=== PATIENT | female | born 1995 | race African-American/Black ===

== ENCOUNTER 2016-09-18 13:23 | Emergency (ER) | payer MEDICAID ==
[~2016-09-18] VITALS: Ht 142.2 cm; Wt 34.0 kg
[~2016-09-18 13:23] MED LIST: AMOXICILLIN500 MG ORAL; BENADRYL25 MG PO; CORTISPORIN EAR10 ML RIGHT EAR; IBUPROFEN400 MG ORAL; NITROFURANTOIN100 M2 ORAL; NKM; PENICILLIN V P500 MG PO; PHENAZOPYRIDIN200 MG ORAL; PREDNISONE20 MG ORAL
[2016-09-18 13:50] VITALS: BP 112/71
[2016-09-18] MEDS ORDERED: Acetaminophen 500mg (ES) tab ORAL ONE (15:15)
[2016-09-18 16:02] VITALS: BP 101/63
[2016-09-18 16:17] LABS: BASOPHILS % (AUTO) 1.4 % (0.0-2.0); LYMPHOCYTES % (AUTO) 10.6 % (20.0-45.0); MEAN CORPUSCULAR HEMOGLOBIN 27.4 PG (27.0-31.0); MEAN CORPUSCULAR HGB CONC 32.9 G/DL (32.0-36.0); MEAN CORPUSCULAR VOLUME 83 FL (80-99); MONOCYTES % (AUTO) 10.2 % (1.0-10.0); NEUTROPHILS % (AUTO) 77.8 % (45.0-75.0); PLATELET COUNT 152 K/UL (150-450); RED BLOOD COUNT 4.17 M/UL (4.20-5.40); RED CELL DISTRIBUTION WIDTH 12.5 % (11.6-14.8); WHITE BLOOD COUNT 4.2 K/UL (4.8-10.8)
--- NOTE | 2016-09-18 16:31 | Emergency Room Report ---
History of Present Illness General Chief Complaint: Upper Respiratory Illness Source: Patient Present Illness HPI Presents with flulike symptoms for 2 days. Assoc symptoms include body aches, chills, nausea, decreased appetite, sore throat, cough, nasal congestion, and fatigue. Patient states that she has not taken any medication for her symptoms currently and that she took DayQuil and NyQuil last night without improvement. Patient states that she has no other physical complaints at this time. Denies any current n/v/f/c/d, abd pain, back pain, neck pain, photophobia, phonophobia , CP, SOB or headache. Allergies: Coded Allergies: No Known Allergies (Unverified , 01/12/13) Patient History Past Medical History: see triage record Pertinent Family History: none Last Menstrual Period: 2 months ago Reviewed Nursing Documentation: PMH: Agreed, PSxH: Agreed Nursing Documentation-PMH Past Medical History: No Stated History Review of Systems All Other Systems: negative except mentioned in HPI Physical Exam Vital Signs Date Time Temp Pulse Resp B/P Pulse Ox O2 Delivery O2 Flow Rate FiO2 09/18/16 13:34 100.6 96 16 112/71 99 Room Air Sp02 EP Interpretation: reviewed, normal General Appearance: no apparent distress, alert, GCS 15, non-toxic Head: normocephalic, atraumatic Eyes: bilateral eye PERRL, bilateral eye normal inspection ENT: hearing grossly normal, normal pharynx, no angioedema, normal voice Neck: full range of motion, supple/symm/no masses Respiratory: chest non-tender, lungs clear, normal breath sounds, speaking full sentences Cardiovascular #1: regular rate, rhythm, no edema Gastrointestinal: non tender, soft, non-distended, no guarding, no rebound Rectal: deferred Genitourinary: no CVA tenderness Musculoskeletal: back normal, gait/station normal Neurologic: alert, oriented x3, responsive, motor strength/tone normal, sensory intact, speech normal Psychiatric: judgement/insight normal, memory normal, mood/affect normal, no suicidal/homicidal ideation Skin: normal color, no rash, warm/dry, well hydrated Lymphatic: no adenopathy Medical Decision Making PA Attestation Dr. Jolly is my supervising physician with whom patient management has been discussed with. Diagnostic Impression: Primary Impression: Upper respiratory infection Qualified Codes: J06.9 - Acute upper respiratory infection, unspecified; B97.89 - Other viral agents as the cause of diseases classified elsewhere ER Course Pt. presents to the ED c/o of cough and congestion Ddx considered but are not limited to bronchitis, pneumonia, viral upper respiratory tract infection Vital signs: are WNL, pt. is afebrile H&PE are most consistent with viral upper respiratory tract infection ORDERS: CBC, CMP ED INTERVENTIONS: 1000cc NS Bolus, APAP, Ibuprofen DISCHARGE: At this time pt. is stable for d/c to home. Will provide printed patient care instructions, and any necessary prescriptions. Care plan and follow up instructions have been discussed with the patient prior to discharge. Laboratory Tests Test 09/18/16 16:12 White Blood Count 4.2 K/UL (4.8-10.8) L Red Blood Count 4.17 M/UL (4.20-5.40) L Hemoglobin 11.4 G/DL (12.0-16.0) L Hematocrit 34.7 % (37.0-47.0) L Mean Corpuscular Volume 83 FL (80-99) Mean Corpuscular Hemoglobin 27.4 PG (27.0-31.0) Mean Corpuscular Hemoglobin Concent 32.9 G/DL (32.0-36.0) Red Cell Distribution Width 12.5 % (11.6-14.8) Platelet Count 152 K/UL (150-450) Mean Platelet Volume 7.0 FL (6.5-10.1) Neutrophils (%) (Auto) 77.8 % (45.0-75.0) H Lymphocytes (%) (Auto) 10.6 % (20.0-45.0) L Monocytes (%) (Auto) 10.2 % (1.0-10.0) H Eosinophils (%) (Auto) 0.0 % (0.0-3.0) Basophils (%) (Auto) 1.4 % (0.0-2.0) Sodium Level 135 mEQ/L (135-145) Potassium Level 4.4 mEQ/L (3.4-4.9) Chloride Level 96 mEQ/L (98-107) L Carbon Dioxide Level 24 mEQ/L (20-30) Anion Gap 15 (5-15) Blood Urea Nitrogen 7 mg/dL (7-23) Creatinine 0.6 mg/dL (0.5-0.9) Estimate Glomerular Filtration Rate > 60 mL/min (>60) Glucose Level 93 mg/dL (74-106) Calcium Level 9.1 mg/dL (8.6-10.2) Total Bilirubin < 0.2 mg/dL (0.0-1.2) Aspartate Amino Transferase (AST) 21 U/L (5-40) Alanine Aminotransferase (ALT) 15 U/L (3-33) Alkaline Phosphatase 49 U/L (35-104) Total Protein 7.7 g/dL (6.6-8.7) Albumin 4.3 g/dL (3.5-5.2) Globulin 3.4 g/dL Albumin/Globulin Ratio 1.2 (1.0-2.7) Last Vital Signs Date Time Temp Pulse Resp B/P Pulse Ox O2 Delivery O2 Flow Rate FiO2 09/18/16 13:50 100.6 94 16 112/71 99 Room Air Status: improved Disposition: HOME, SELF-CARE Condition: Improved Scripts Ibuprofen* (MOTRIN*) 600 Mg Tablet 600 MG ORAL Q6H Y for For Pain, #30 TAB Prov: FANI HUYNHM P.A. 09/18/16 Ondansetron Odt* (ZOFRAN ODT*) 4 Mg Tab.rapdis 4 MG ORAL Q6H Y for Nausea & Vomiting, #30 TAB Prov: MINGO HUYNH P.A. 09/18/16 Referrals: NON PHYSICIAN (PCP) Patient Instructions: Viral Respiratory Infection Additional Instructions: Take medication as directed. Drink plenty of fluids which include Gatorade and water. Get plenty of rest. Avoid taking medications on an empty stomach. If you have cough avoid dairy and cold beverages. If you have a fever, headache or body aches please take [id number] tylenol/motrin/advil unless a prescription for these symptoms have been given. If your symptoms are worsening or you have shortness or breath, severe headaches or chest pain, please call 911 or go to the ER. Take medication as directed. Patient instructed to stay well hydrated and to use a liquid diet and then progress to soft bland diet as tolerated before reverting back to a regular diet. Patient Education was given to the patient. Patient advised if irreretractible pain, rectal bleeding, or no BM to go to ER immediately. MINGO HUYNH Sep 18, 2016 16:31
[2016-09-18 16:40] LABS: ALANINE AMINOTRANSFERASE 15 U/L (3-33); ALBUMIN/GLOBULIN RATIO 1.2 (1.0-2.7); ANION GAP 15 (5-15); ASPARTATE AMINO TRANSFERASE 21 U/L (5-40); CALCIUM 9.1 mg/dL (8.6-10.2); CARBON DIOXIDE 24 mEQ/L (20-30); CHLORIDE 96 mEQ/L (98-107); CREATININE 0.6 mg/dL (0.5-0.9); GLOMERULAR FILTRATION RATE > 60 mL/min (>60); HEMOLYSIS 3; POTASSIUM 4.4 mEQ/L (3.4-4.9); SODIUM 135 mEQ/L (135-145); TOTAL PROTEIN 7.7 g/dL (6.6-8.7)
[2016-09-18] MEDS ORDERED: ZOFRAN ODT4 MG ORAL (17:09)
[2016-09-18] MEDS ORDERED: IBUPROFEN600 MG ORAL (17:09)
[2016-09-18 17:20] VITALS: BP 110/73
[2016-09-18 17:21] VITALS: BP 101/63
== END 2016-09-18 17:21 | disposition home or self-care (01) ==
LOC: EMR 14:01
DX: J06.9 Acute upper respiratory infection, unspecified (principal)
CPT/HCPCS: 36415; 80053; 85025; 96374

== ENCOUNTER 2017-03-15 11:22 | Emergency (ER) | payer MEDICAID, OTHER ==
[~2017-03-15] VITALS: Ht 142.2 cm; Wt 31.8 kg
[~2017-03-15 11:22] MED LIST changes: +IBUPROFEN600 MG ORAL; +ZOFRAN ODT4 MG ORAL
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
[2017-03-15] MEDS ORDERED: ROBAXIN-750750 MG PO (11:56)
[2017-03-15] MEDS ORDERED: IBUPROFEN400 MG ORAL (11:56)
[2017-03-15 12:02] VITALS: BP 120/76
[2017-03-15 12:04] VITALS: BP 120/76
== END 2017-03-15 12:28 | disposition home or self-care (01) ==
LOC: EMR 12:01
DX: S13.9XXA Sprain of joints and ligaments of unspecified parts of neck, initial encounter (principal); V43.52XA Car driver injured in collision with other type car in traffic accident, initial encounter; Y93.9 Activity, unspecified; Y92.410 Unspecified street and highway as the place of occurrence of the external cause; R25.2 Cramp and spasm
CPT/HCPCS: 99284

== ENCOUNTER 2017-10-01 17:31 | Emergency (ER) | payer MEDICAID, OTHER ==
[~2017-10-01] VITALS: Ht 142.2 cm; Wt 34.0 kg
[~2017-10-01 17:31] MED LIST changes: +ROBAXIN-750750 MG PO
[2017-10-01 17:55] VITALS: BP 104/60
--- NOTE | 2017-10-01 17:57 | Emergency Room Report ---
History of Present Illness General Chief Complaint: Sore Throat Present Illness HPI 21-year-old female presents to the emergency department complaining of nasal congestion and rhinorrhea since yesterday in addition to 8 out of 10 in severity sore throat with chills this a.m. Patient reports subjective fevers. Pain exacerbated with swallowing. denies rashes, or swelling of the lips, tongue , or airway. denies SOB. She reports that she is 2 months she has had IUP established and this is her first she denies abdominal pain, cramping, vaginal discharge or bleeding. Denies ear pain, high fevers, lethargy , neck pain/stiffness, irritability, photophobia or dehydration. Denies dysuria , frequency, hematuria or urgency. Denies Cp, Palpitations, LOC, AMS, seizures , paresthesias, or changes in Hearing or vision, no Sudden severe POWERS. She denies recent travel or ill contacts. 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 Reviewed Nursing Documentation: PMH: Agreed; PSxH: Agreed Nursing Documentation-PMH Past Medical History: No Stated History Hx Asthma: Yes Review of Systems All Other Systems: negative except mentioned in HPI Physical Exam Vital Signs Date Time Temp Pulse Resp B/P (MAP) Pulse Ox O2 Delivery O2 Flow Rate FiO2 10/01/17 17:37 98.7 100 18 104/60 100 Room Air 98.8 Sp02 EP Interpretation: reviewed, normal General Appearance: no apparent distress, alert, GCS 15, non-toxic Head: normocephalic, atraumatic Eyes: bilateral eye normal inspection, bilateral eye PERRL ENT: hearing grossly normal, normal voice, TMs + canals normal, uvula midline, moist mucus membranes, tonsillar swelling, pharyngeal erythema, other - no stridor Neck: full range of motion Respiratory: chest non-tender, lungs clear, normal breath sounds, no respiratory distress, no wheezing, speaking full sentences Cardiovascular #1: regular rate, rhythm, no edema, normal capillary refill Gastrointestinal: non tender, soft, non-distended, no guarding Rectal: deferred Genitourinary: normal inspection, no CVA tenderness Musculoskeletal: back normal, gait/station normal, normal range of motion, non- tender Neurologic: alert, oriented x3, responsive, motor strength/tone normal, sensory intact, normal gait, speech normal, grossly normal Psychiatric: judgement/insight normal Skin: normal color, no rash, warm/dry, well hydrated Lymphatic: no adenopathy Medical Decision Making PA Attestation Dr. vasquez is my supervising Physician whom patient management has been discussed with. Diagnostic Impression: Primary Impression: Pharyngitis ER Course 21-year-old female presents to the emergency department complaining of nasal congestion and rhinorrhea since yesterday in addition to 8 out of 10 in severity sore throat with chills this a.m. Patient reports subjective fevers. Pain exacerbated with swallowing. denies rashes, or swelling of the lips, tongue , or airway. denies SOB. She reports that she is 2 months she has had IUP established and this is her first she denies abdominal pain, cramping, vaginal discharge or bleeding. Denies ear pain, high fevers, lethargy , neck pain/stiffness, irritability, photophobia or dehydration. Denies dysuria , frequency, hematuria or urgency. Denies Cp, Palpitations, LOC, AMS, seizures , paresthesias, or changes in Hearing or vision, no Sudden severe POWERS. She denies recent travel or ill contacts. Ddx considered but are not limited to: pharyngitis, strep, FIREARMS EXPERT, ludwigs angina, URI, thrombus, complications just to name a few. Vital signs: are WNL, pt. is afebrile H&PE are most consistent with: pharyngitis presumed strep. ORDERS: None required at this time as the diagnosis is clinical ED INTERVENTIONS: none required at this time. d/w pt. conservative treatment, and to follow up with a primary care provider. pt given a list of primary care clinics for follow up. d/w pt. to return to the ED with worsening or new symptoms. DISCHARGE: At this time pt. is stable for d/c to home. Will provide printed patient care instructions, and any necessary prescriptions. Care plan and follow up instructions have been discussed with the patient prior to discharge. Last Vital Signs Date Time Temp Pulse Resp B/P (MAP) Pulse Ox O2 Delivery O2 Flow Rate FiO2 10/01/17 17:37 98.7 100 18 104/60 100 Room Air 98.8 Disposition: HOME, SELF-CARE Condition: Stable Scripts Amoxicillin* (AMOXIL*) 500 Mg Capsule 500 MG ORAL BID for 7 Days, #14 CAP Prov: Nancy Carroll 10/01/17 Acetaminophen* (TYLENOL EXTRA STRENGTH*) 500 Mg Tablet 500 MG ORAL Q6H, #20 TAB 0 Refills Prov: Nancy Carroll 10/01/17 Patient Instructions: Pharyngitis, [id number] Additional Instructions: Take medications as directed. Follow up with a Primary Care Provider in 3-5 days, even if your symptoms have resolved. --Please review list of primary care clinics, if you do not already have a primary care provider Return sooner to ED if new symptoms occur, or current symptoms become worse. - Please note that this Emergency Department Report was dictated using [employer] scrap worker technology software, occasionally this can lead to erroneous entry secondary to interpretation by the dictation equipment. Nancy Carroll Oct 01, 2017 17:57
[2017-10-01] MEDS ORDERED: AMOXICILLIN500 MG ORAL (18:00)
[2017-10-01] MEDS ORDERED: TYLENOL EXTRA500 MG ORAL (18:00)
[2017-10-01 18:09] VITALS: BP 104/60
== END 2017-10-01 18:10 | disposition home or self-care (01) ==
LOC: EMR 18:02
DX: J02.9 Acute pharyngitis, unspecified (principal); J45.909 Unspecified asthma, uncomplicated
CPT/HCPCS: 99284

== ENCOUNTER 2017-10-11 12:38 | Emergency (ER) | payer MEDICAID ==
[~2017-10-11] VITALS: Ht 142.2 cm; Wt 34.0 kg
[~2017-10-11 12:38] MED LIST changes: +TYLENOL EXTRA500 MG ORAL
--- NOTE | 2017-10-11 13:10 | Emergency Room Report ---
History of Present Illness General Chief Complaint: Sore Throat Present Illness HPI 21-year-old female presents to the emergency department complaining of 7 out of 10 in severity intermittent sore throat with nasal congestion and rhinorrhea and sneezing and intermittent itchy sensation. Patient states that she finished course of antibiotics which she was prescribed a week and a half ago. Pain is exacerbated upon swallowing. Denies lesions/rashes elsewhere on the body. Pt. reports she is 3 months . Denies new medications or body washes or creams. Denies swelling of the lips, tongue , throat or airway. Denies wheezing, or shortness of breath. Denies recent travel, recent illness or ill contacts. denies blisters, oral lesions, or sloughing of the skin. Allergies: Coded Allergies: No Known Allergies (Unverified , 01/12/13) Patient History Past Medical History: see triage record Pertinent Family History: none Last Menstrual Period: Jun Now: Yes Reviewed Nursing Documentation: PMH: Agreed; PSxH: Agreed Nursing Documentation-PMH Hx Asthma: Yes Review of Systems All Other Systems: negative except mentioned in HPI Physical Exam Vital Signs Date Time Temp Pulse Resp B/P (MAP) Pulse Ox O2 Delivery O2 Flow Rate FiO2 10/11/17 12:43 97.9 104 16 112/76 95 Room Air 97.9 Sp02 EP Interpretation: reviewed, normal General Appearance: well appearing, no apparent distress, alert, GCS 15, non- toxic Head: normocephalic, atraumatic Eyes: bilateral eye normal inspection, bilateral eye PERRL ENT: hearing grossly normal, normal pharynx - cobble stone appearance noted. , no angioedema, normal voice, TMs + canals normal, uvula midline, nasal congestion, other - no exudates, not appreciable erythematous. Neck: full range of motion, no meningismus, no bony tend Respiratory: chest non-tender, lungs clear, normal breath sounds, no respiratory distress, no wheezing, speaking full sentences Cardiovascular #1: regular rate, rhythm Musculoskeletal: back normal, gait/station normal, normal range of motion, non- tender Neurologic: alert, oriented x3, responsive, motor strength/tone normal, sensory intact, speech normal, grossly normal Psychiatric: judgement/insight normal Skin: normal color, no rash, warm/dry, well hydrated Lymphatic: no adenopathy Medical Decision Making PA Attestation Dr. Webber is my supervising Physician whom patient management has been discussed with. Diagnostic Impression: Primary Impression: Sore throat Additional Impressions: Allergic pharyngitis Allergic rhinitis Qualified Codes: J30.9 - Allergic rhinitis, unspecified ER Course 21-year-old female presents to the emergency department complaining of 7 out of 10 in severity intermittent sore throat with nasal congestion and rhinorrhea and sneezing and intermittent itchy sensation. Patient states that she finished course of antibiotics which she was prescribed a week and a half ago. Pain is exacerbated upon swallowing. Denies lesions/rashes elsewhere on the body. Pt. reports she is 3 months . Denies new medications or body washes or creams. Denies swelling of the lips, tongue , throat or airway. Denies wheezing, or shortness of breath. Denies recent travel, recent illness or ill contacts. denies blisters, oral lesions, or sloughing of the skin. Ddx considered but are not limited to: pharyngitis, strep, ASSISTANT FOREMAN, ludwigs angina, URI Vital signs: are WNL, pt. is afebrile H&PE are most consistent with: rhinitis- presumed allergic in etiology with pharyngitis secondary to PND. ORDERS: None required at this time as the diagnosis is clinical ED INTERVENTIONS: none required at this time. -D/w pt. conservative treatment with Zyrtec-D which research shows category B. DISCHARGE: At this time pt. is stable for d/c to home. Will provide printed patient care instructions, and any necessary prescriptions. Care plan and follow up instructions have been discussed with the patient prior to discharge. Last Vital Signs Date Time Temp Pulse Resp B/P (MAP) Pulse Ox O2 Delivery O2 Flow Rate FiO2 10/11/17 12:43 97.9 104 16 112/76 95 Room Air 97.9 Disposition: HOME, SELF-CARE Condition: Stable Scripts Fluticasone Furoate (FLONASE SENSIMIST) 9.9 Ml [place].susp 2 ML NS DAILY, #9.9 ML Prov: Nancy Carroll P.A. 10/11/17 Cetirizine Hcl/Pseudoephedrine (ZYRTEC-D TABLET) 1 Each Tab.er.12h 1 EACH ORAL Q12HR, #30 TAB Prov: Nancy Carroll Luis 10/11/17 Patient Instructions: Pharyngitis, [id number] Additional Instructions: Take medications as directed. Follow up with an ENT in 3-5 days, even if your symptoms have resolved. --Please review list of primary care clinics, if you do not already have a primary care provider Return sooner to ED if new symptoms occur, or current symptoms become worse. - Please note that this Emergency Department Report was dictated using [employer] envelope machine operator technology software, occasionally this can lead to erroneous entry secondary to interpretation by the dictation equipment. Nancy Carroll Oct 11, 2017 13:10
[2017-10-11] MEDS ORDERED: ZYRTEC-D TABLE1 EACH ORAL (13:14)
[2017-10-11] MEDS ORDERED: FLONASE SENSIM9.9 ML NS (13:14)
[2017-10-11 13:28] VITALS: BP 98/65
== END 2017-10-11 15:00 | disposition home or self-care (01) ==
LOC: EMR 14:12
DX: O99.511 Diseases of the respiratory system complicating pregnancy, first trimester (principal); Z3A.00 Weeks of gestation of pregnancy not specified; J02.9 Acute pharyngitis, unspecified; J30.9 Allergic rhinitis, unspecified; J45.909 Unspecified asthma, uncomplicated
CPT/HCPCS: 99284

== ENCOUNTER 2017-11-24 17:26 | Emergency (ER) | payer MEDICAID ==
[~2017-11-24] VITALS: Ht 142.2 cm; Wt 34.0 kg
[~2017-11-24 17:26] MED LIST changes: +FLONASE SENSIM9.9 ML NS; +ZYRTEC-D TABLE1 EACH ORAL
[2017-11-24 17:45] VITALS: BP 123/73
[2017-11-24 18:11] VITALS: BP 123/73
--- NOTE | 2017-11-24 18:20 | Emergency Room Report ---
History of Present Illness General Chief Complaint: Head Injury Source: Patient Present Illness HPI Patient presents with complaints of head injury This happened on Thursday Patient reports that she was at the grocery store she was reaching up when a bottle fell on top of her head Denies any swelling or bruising Denies any lapse of consciousness Patient reports that she has some minimal nausea today The pain had subsided from yesterday Denies any focal weakness denies any chest pain or shortness of breath Allergies: Coded Allergies: No Known Allergies (Unverified , 01/12/13) Patient History Past Medical History: see triage record Pertinent Family History: none Now: Yes : 1 Para: 0 Reviewed Nursing Documentation: PMH: Agreed; PSxH: Agreed Nursing Documentation-PMH Past Medical History: No History, Except For Hx Asthma: Yes Review of Systems All Other Systems: negative except mentioned in HPI Physical Exam Vital Signs Date Time Temp Pulse Resp B/P (MAP) Pulse Ox O2 Delivery O2 Flow Rate FiO2 11/24/17 17:36 98.4 95 16 123/73 100 Room Air 98.4 Sp02 EP Interpretation: reviewed, normal General Appearance: well appearing, no apparent distress Head: normocephalic, atraumatic Eyes: bilateral eye PERRL, bilateral eye EOMI ENT: hearing grossly normal, normal pharynx, TMs + canals normal, uvula midline Neck: full range of motion, supple, no meningismus, no bony tend Respiratory: lungs clear, normal breath sounds, no rhonchi, no respiratory distress, no retraction, no accessory muscle use Cardiovascular #1: normal peripheral pulses, regular rate, rhythm, no edema, no gallop, no JVD, no murmur Gastrointestinal: normal bowel sounds, non tender, soft, no mass, no organomegaly, no guarding, no hernia, no pulsatile mass, no rebound, other - abdomen Genitourinary: no CVA tenderness Musculoskeletal: normal inspection Neurologic: oriented x3, responsive, dock associate III-XII nml as tested, motor strength/ tone normal, sensory intact Psychiatric: mood/affect normal Skin: normal color, no rash, warm/dry, palpation normal Lymphatic: normal inspection, no adenopathy Medical Decision Making Diagnostic Impression: Primary Impression: head injury ER Course Patient has findings consistent with concussive syndrome With the lack of any hematoma, lack of any loss of consciousness Benign neurological exam patient does not meet criteria for imaging study Patient has no other related complaints and at this time will continue to have close outpatient follow-up Last Vital Signs Date Time Temp Pulse Resp B/P (MAP) Pulse Ox O2 Delivery O2 Flow Rate FiO2 11/24/17 18:11 98.4 95 16 123/73 100 Room Air 98.4 Status: unchanged Disposition: HOME, SELF-CARE Condition: Stable Patient Instructions: Concussion, Adult, [id number]-[id number] Additional Instructions: Patient is provided with the discharge instructions notified to follow up with primary doctor in the next 2-3 days otherwise return to the er with any worsening symptoms. Please note that this report is being documented using [employer] technology. This can lead to erroneous entry secondary to incorrect interpretation by the dictating instrument. Carolina Jolly DO November 24, 2017 18:20
== END 2017-11-24 18:11 | disposition home or self-care (01) ==
LOC: EMR 18:08
DX: S09.90XA Unspecified injury of head, initial encounter (principal); W20.8XXA Other cause of strike by thrown, projected or falling object, initial encounter; Y92.512 Supermarket, store or market as the place of occurrence of the external cause
CPT/HCPCS: 99282

== ENCOUNTER 2018-07-16 09:08 | Emergency (ER) | payer MEDICAID ==
[~2018-07-16] VITALS: Ht 142.2 cm; Wt 34.0 kg
[2018-07-16 09:19] VITALS: BP 108/62
[2018-07-16 10:15] VITALS: BP 108/62
--- NOTE | 2018-07-16 13:26 | Emergency Room Report ---
History of Present Illness General Chief Complaint: Upper Extremity Injury Source: Patient Present Illness HPI Patient presents with complaints of discomfort to the right palmar wrist area Ongoing for the past several days patient reports that she has a 4-month-old and lifting the child appears to be worsening her symptoms Also with flexing and extending having pain radiation into the hand itself Denies any trauma denies any fevers or chills denies any swelling denies any discomfort during Allergies: Coded Allergies: No Known Allergies (Unverified , 01/12/13) Patient History Past Medical History: see triage record Pertinent Family History: none Last Menstrual Period: 07/15/17 Reviewed Nursing Documentation: PMH: Agreed; PSxH: Agreed Nursing Documentation-PMH Past Medical History: No Stated History Hx Asthma: Yes Review of Systems All Other Systems: negative except mentioned in HPI Physical Exam Vital Signs Date Time Temp Pulse Resp B/P (MAP) Pulse Ox O2 Delivery O2 Flow Rate FiO2 07/16/18 09:11 98.2 68 18 108/62 100 Room Air Sp02 EP Interpretation: reviewed, normal General Appearance: well appearing, no apparent distress Head: normocephalic, atraumatic Eyes: bilateral eye PERRL, bilateral eye EOMI ENT: hearing grossly normal, normal pharynx, TMs + canals normal, uvula midline Neck: full range of motion, supple, no meningismus, no bony tend Respiratory: lungs clear, normal breath sounds, no rhonchi, no respiratory distress, no retraction, no accessory muscle use Cardiovascular #1: normal peripheral pulses, regular rate, rhythm, no edema, no gallop, no JVD, no murmur Gastrointestinal: normal bowel sounds, non tender, soft, no mass, no organomegaly, non-distended, no guarding, no hernia, no pulsatile mass, no rebound Genitourinary: no CVA tenderness Musculoskeletal: decreased range of motion - Deformity at the small finger, other - Essentially appropriate exam, with some flexion and tapping on the flexor aspect of the wrist she does have some reproducible discomfort Neurologic: oriented x3, responsive, isotope hydrologist III-XII nml as tested, motor strength/ tone normal, sensory intact Psychiatric: mood/affect normal Skin: normal color, no rash, warm/dry, palpation normal Lymphatic: normal inspection, no adenopathy Procedures Splinting Splinting : Consent: Verbal Location: Right wrist Pre-Made Type: Volar Splint: volar Pre-Proc Neuro Vasc Exam: normal Post-Proc Neuro Vasc Exam: normal Patient Tolerated: Well Complications: None Medical Decision Making Diagnostic Impression: Primary Impression: wrist pain ER Course Patient appears to have symptoms consistent with carpal tunnel type pathology Ligamental soft tissue Suspicion for acute fracture is low Patient was splinted will have initial conservative attempt and return with any changes or concerns Last Vital Signs Date Time Temp Pulse Resp B/P (MAP) Pulse Ox O2 Delivery O2 Flow Rate FiO2 07/16/18 10:15 98.2 18 108/62 100 Room Air 07/16/18 09:19 68 Status: improved Disposition: HOME, SELF-CARE Condition: Stable Referrals: NON PHYSICIAN (PCP) Patient Instructions: Wrist Pain, [id number] Additional Instructions: Patient is provided with the discharge instructions notified to follow up with primary doctor in the next 2-3 days otherwise return to the er with any worsening symptoms. Please note that this report is being documented using [employer] technology. This can lead to erroneous entry secondary to incorrect interpretation by the dictating instrument. Carolina Jolly DO Jul 16, 2018 13:26
== END 2018-07-16 10:15 | disposition home or self-care (01) ==
LOC: EMR 10:05
DX: M25.531 Pain in right wrist (principal); J45.909 Unspecified asthma, uncomplicated
CPT/HCPCS: 29125; 99283

== ENCOUNTER 2019-07-12 12:58 | Emergency (ER) | payer MEDICAID ==
[~2019-07-12] VITALS: Ht 142.2 cm; Wt 28.1 kg
--- NOTE | 2019-07-12 13:42 | Emergency Room Report ---
History of Present Illness General Chief Complaint: Abdominal Pain Source: Patient Present Illness HPI 23-year-old female presents to the emergency department complaining of 9 out of 10 severity cramping abdominal pain with associated vomiting and diarrhea x2 days. Patient reports she is unable to keep anything down including liquids. Patient denies blood in the vomit or stool she denies black tarry stools. Patient denies recent travel. She reports several ill contacts. Patient denies suspicion of . She denies dysuria, hematuria or urinary frequency. She reports her cramping is generalized she denies specific localization of abdominal tenderness. She denies fevers or chills. She reports increase in fatigue denies dizziness, chest pain, shortness of breath or syncope. Allergies: Coded Allergies: No Known Allergies (Unverified , 01/12/13) Patient History Past Medical History: see triage record Past Surgical History: none Pertinent Family History: none Last Menstrual Period: 12-1 Now: No Immunizations: UTD Reviewed Nursing Documentation: PMH: Agreed; PSxH: Agreed Nursing Documentation-PMH Past Medical History: No History, Except For Hx Asthma: Yes Review of Systems All Other Systems: negative except mentioned in HPI Physical Exam Vital Signs Date Time Temp Pulse Resp B/P (MAP) Pulse Ox O2 Delivery O2 Flow Rate FiO2 07/12/19 13:17 98.8 94 18 110/66 (81) 98 Room Air Sp02 EP Interpretation: reviewed, normal General Appearance: no apparent distress, alert, GCS 15, non-toxic, thin Head: normocephalic, atraumatic Eyes: bilateral eye normal inspection, bilateral eye PERRL ENT: hearing grossly normal, normal voice Neck: full range of motion Respiratory: lungs clear, normal breath sounds, speaking full sentences Cardiovascular #1: regular rate, rhythm Gastrointestinal: normal bowel sounds, non tender, soft, non-distended, no guarding, no hernia Genitourinary: normal inspection, no CVA tenderness Musculoskeletal: back normal, normal range of motion, gait/station normal, non- tender Neurologic: alert, motor strength/tone normal, oriented x3, sensory intact, responsive, speech normal Psychiatric: judgement/insight normal Skin: no rash Lymphatic: no adenopathy Medical Decision Making PA Attestation Dr. Ochoa is my supervising physician whom pt. management has been discussed with. Diagnostic Impression: Primary Impression: Nausea, vomiting and diarrhea ER Course 23-year-old female presents to the emergency department complaining of 9 out of 10 severity cramping abdominal pain with associated vomiting and diarrhea x2 days. Patient reports she is unable to keep anything down including liquids. Patient denies blood in the vomit or stool she denies black tarry stools. Patient denies recent travel. She reports several ill contacts. Patient denies suspicion of . She denies dysuria, hematuria or urinary frequency. She reports her cramping is generalized she denies specific localization of abdominal tenderness. She denies fevers or chills. She reports increase in fatigue denies dizziness, chest pain, shortness of breath or syncope. Ddx considered but are not limited to GE, colitis, acute appy, SBO, Cyclical Vomiting secondary to THC, * Vital signs: pt. is afebrile, H&PE are most consistent with GE most likely viral in etiology, no evidence to suggest acute abdomen on physical exam. No evidence to suggest severe dehydration or need for fluid resuscitation ORDERS: - UA: WNL -Urine Hcg: negative -UDS: Positive for THC ED INTERVENTIONS: -Zofran 4mg PO After above interventions this patient successfully completed oral fluid challenge without nausea or vomiting. -I do not identify an emergent condition at this time. With current presentation , pt. is stable for close outpatient follow up and conservative treatment. D/ w pt. to return promptly to ED with worsening or new symptoms.- Pt. verbalizes' understanding and agreement with proposed treatment plan.proposed treatment plan. DISCHARGE: At this time pt. is stable for d/c to home. Will provide printed patient care instructions, and any necessary prescriptions. Care plan and follow up instructions have been discussed with the patient prior to discharge. Labs Test 07/12/19 13:20 Urine Color Pale yellow Urine Appearance Clear Urine pH 5 (4.5-8.0) Urine Specific [place] 1.020 (1.005-1.035) Urine Protein Negative (NEGATIVE) Urine Glucose (UA) Negative (NEGATIVE) Urine Ketones Negative (NEGATIVE) Urine Blood Negative (NEGATIVE) Urine Nitrite Negative (NEGATIVE) Urine Bilirubin Negative (NEGATIVE) Urine Urobilinogen Normal MG/DL (0.0-1.0) Urine Leukocyte Esterase Negative (NEGATIVE) Urine HCG, Qualitative Negative (NEGATIVE) Urine Opiates Screen Negative (NEGATIVE) Urine Barbiturates Screen Negative (NEGATIVE) Phencyclidine (PCP) Screen Negative (NEGATIVE) Urine Amphetamines Screen Negative (NEGATIVE) Urine Benzodiazepines Screen Negative (NEGATIVE) Urine Cocaine Screen Negative (NEGATIVE) Urine Marijuana (THC) Screen Positive (NEGATIVE) Last Vital Signs Date Time Temp Pulse Resp B/P (MAP) Pulse Ox O2 Delivery O2 Flow Rate FiO2 07/12/19 13:17 98.8 94 18 110/66 (81) 98 Room Air Disposition: HOME, SELF-CARE Condition: Stable Scripts Dicyclomine Hcl* (DICYCLOMINE HCL*) 10 Mg Capsule 10 MG ORAL TID for 3 Days, #9 CAP Prov: Nancy Carroll 07/12/19 Ondansetron Odt* (ZOFRAN ODT*) 4 Mg Tab.rapdis 4 MG BC EVERY 6 HOURS PRN for Nausea & Vomiting, #10 TAB 0 Refills Prov: Nancy Carroll 07/12/19 Referrals: [facility] (PCP) Patient Instructions: Viral Gastroenteritis, Adult Additional Instructions: Take medications as directed. Follow up with a Primary Care Provider in 3-5 days, even if your symptoms have resolved. Return sooner to ED if new symptoms occur, or current symptoms become worse. - Please note that this Emergency Department Report was dictated using [employer] tech technology software, occasionally this can lead to erroneous entry secondary to interpretation by the dictation equipment. Nancy Carroll Jul 12, 2019 13:42
[2019-07-12 13:49] LABS: APPEARANCE,URINE CLEAR; BILIRUBIN, URINE NEGATIVE (NEGATIVE); COLOR,URINE PALE YELLOW; GLUCOSE, URINE (UA) NEGATIVE (NEGATIVE); KETONES,URINE NEGATIVE (NEGATIVE); LEUKOCYTE ESTERASE ,URINE NEGATIVE (NEGATIVE); NITRITE,URINE NEGATIVE (NEGATIVE); PH,URINE 5 (4.5-8.0); PROTEIN,URINE NEGATIVE (NEGATIVE); UROBILINOGEN,URINE NORMAL MG/DL (0.0-1.0)
[2019-07-12 13:52] VITALS: BP 110/66
[2019-07-12] MEDS ORDERED: DICYCLOMINE HCL10 MG ORAL (14:35)
[2019-07-12] MEDS ORDERED: ONDANSETRON ODT4 MG BC (14:35)
[2019-07-12 14:49] VITALS: BP 105/70
== END 2019-07-12 14:45 | disposition home or self-care (01) ==
LOC: EMR 13:35
DX: R11.2 Nausea with vomiting, unspecified (principal); R19.7 Diarrhea, unspecified
CPT/HCPCS: 80307; 81003; 81025; Z7502; 99283

== ENCOUNTER 2020-08-22 09:08 | Emergency (ER) | payer MEDICAID ==
[~2020-08-22] VITALS: Ht 142.2 cm; Wt 34.0 kg
[~2020-08-22 09:08] MED LIST changes: +DICYCLOMINE HCL10 MG ORAL; +ONDANSETRON ODT4 MG BC
[2020-08-22 09:30] VITALS: BP 99/66
--- NOTE | 2020-08-22 09:34 | NUR ---
ED Nurse Note: pt stated she has been coughing for a week, productive with clear, green and blackish. she states she smokes cigarretts and pot and realizes that's not going to help. her baby was seen last week for the same thing. bodyaches and headache yesterday.
[2020-08-22] MEDS ORDERED: guaiFENesin /DM 10ml syrup ORAL STA (09:38)
--- NOTE | 2020-08-22 09:40 | Emergency Room Report ---
History of Present Illness General Chief Complaint: Upper Respiratory Illness Source: Patient Present Illness HPI Patient presents with 1 week of upper respiratory symptoms. She has a cough, runny nose and sore throat. The patient has had some wheezing. She has a history of asthma. The patient does smoke. Patient denies any chest pain. She has felt feverish but not documented a temperature. There are no muscle aches. There is no nausea, vomiting or diarrhea. She is on her menstruation at this time. She denies dysuria. she has tried NyQuil and DayQuil which have been helpful but she still has a cough. The cough is mildly productive of beige phlegm. Patient has possible Covid contacts with her employment. No chills, chest pain, palpitations, abdominal pain, shortness of breath, joint pain, rashes, depression, anxiety, visual changes, dizziness, headache. Allergies: Coded Allergies: No Known Allergies (Unverified , 01/12/13) COVID-19 Screening Contact w/high risk pt: No Experienced COVID-19 symptoms?: Yes COVID-19 Testing performed [place]ER: Yes COVID-19 Screening: Negative COVID-19 COVID-19 Testing Source: 06/2020 Patient History Past Medical History: see triage record Social History: Reports: smoking Social History Narrative From home and currently working. Last Menstrual Period: on her period Now: No Reviewed Nursing Documentation: PMH: Agreed; PSxH: Agreed Nursing Documentation-PMH Past Medical History: No Stated History Hx Asthma: Yes Review of Systems All Other Systems: negative except mentioned in HPI Physical Exam Vital Signs Date Time Temp Pulse Resp B/P (MAP) Pulse Ox O2 Delivery O2 Flow Rate FiO2 08/22/20 09:24 98.2 86 18 99/66 (77) 96 Room Air Sp02 EP Interpretation: reviewed, normal General Appearance: well appearing, no apparent distress, GCS 15 Head: normocephalic Eyes: bilateral eye normal inspection, bilateral eye PERRL, bilateral eye EOMI ENT: normal pharynx, moist mucus membranes Neck: normal inspection, full range of motion Respiratory: chest non-tender, wheezing - Posttussive Cardiovascular #1: regular rate, rhythm Cardiovascular #2: 2+ radial (R) Gastrointestinal: normal inspection Musculoskeletal: gait/station normal Neurologic: alert, grossly normal Psychiatric: mood/affect normal Skin: normal color, no rash, warm/dry Medical Decision Making Diagnostic Impression: Primary Impression: Upper respiratory infection Qualified Codes: J06.9 - Acute upper respiratory infection, unspecified Additional Impressions: Bronchospasm COVID-19 ruled out by laboratory testing ER Course Patient with history of asthma presents with upper respiratory symptoms. Differential includes asthma exacerbation, bronchitis, pneumonia, COVID-19 amongst others. Patient evaluated with Covid testing. Patient treated with Robitussin-DM. Covid test negative. Cough is somewhat improved with treatment. No respiratory distress. Discussed findings and treatment plan. Patient stable for outpatient observation and treatment. Microbiology Date/Time Source Procedure Growth Status 08/22/20 09:38 Nasopharynx SARS-CoV-2 Antigen (Rapid)(JAQUELINE) - Final Complete Last Vital Signs Date Time Temp Pulse Resp B/P (MAP) Pulse Ox O2 Delivery O2 Flow Rate FiO2 08/22/20 09:33 Room Air 08/22/20 09:30 86 18 08/22/20 09:30 98.2 99/66 96 Status: improved Disposition: HOME, SELF-CARE Condition: Improved Scripts Albuterol Sulfate* (Albuterol Sulfate Hfa*) 8.5 Gm Hfa.aer.ad 2 PUFF INH Q6H, #1 INH Prov: Derrek Whitehead MD 08/22/20 Guaifenesin/Codeine Phos* (ROBITUSSIN AC*) 118 Ml Liquid 5 ML ORAL Q6H PRN for For Cough, #90 ML 0 Refills Prov: Derrek Whiteehad MD 08/22/20 Referrals: [facility] (PCP) Derrek Whitehead MD Aug 22, 2020 09:39
[2020-08-22] MEDS ORDERED: ALBUTEROL SULF8.5 G1 INH (10:28)
[2020-08-22] MEDS ORDERED: GUAIFENESIN-CO118 M1 ORAL (10:28)
--- NOTE | 2020-08-22 10:49 | NUR ---
ER DISCHARGE NOTE: Patient is cleared to be discharged per ERMD, pt is aox4, on room air, with stable vital signs. pt was given dc and prescription instructions, pt was able to verbalize understanding. pt is able to ambulate with steady gait. pt took all belongings.
== END 2020-08-22 10:49 | disposition home or self-care (01) ==
LOC: EMR 09:32
DX: J06.9 Acute upper respiratory infection, unspecified (principal); J45.909 Unspecified asthma, uncomplicated; Z79.899 Other long term (current) drug therapy
CPT/HCPCS: 99283

== ENCOUNTER 2020-09-01 11:19 | Emergency (ER) | payer MEDICAID ==
[~2020-09-01 11:19] MED LIST changes: +ALBUTEROL SULF8.5 G1 INH; +GUAIFENESIN-CO118 M1 ORAL
--- NOTE | 2020-09-01 12:40 | NUR ---
CALLED OUT NO ANSWER
--- NOTE | 2020-09-01 13:16 | Emergency Room Report ---
History of Present Illness General Chief Complaint: To Be Triaged Present Illness HPI Patient left prior to being triaged. Allergies: Coded Allergies: No Known Allergies (Unverified , 01/12/13) COVID-19 Screening Contact w/high risk pt: No Experienced COVID-19 symptoms?: Yes Nursing Documentation-PM Hx Asthma: Yes Medical Decision Making Referrals: [facility],REF[facility] (PCP) Rossy Marr M.D. Sep 01, 2020 13:16
== END 2020-09-01 12:40 | disposition left against medical advice (07) ==
LOC: EMR 11:35
DX: H57.13 Ocular pain, bilateral (principal); R68.83 Chills (without fever); R05 Cough; Z53.21 Procedure and treatment not carried out due to patient leaving prior to being seen by health care provider